=== PATIENT | male | born 1950 | race Caucasian/White ===

== ENCOUNTER 2020-11-15 15:22 | Outpatient (RCR) | payer BC, SELFPAY ==
[2020-11-15] MEDS: COVID-19 VACC, MRNA(PFIZER)/PF 30 MCG/0.3 ML SYRINGE IM (13:55)
[2020-12-06] MEDS: COVID-19 VACC, MRNA(PFIZER)/PF 30 MCG/0.3 ML SYRINGE IM (14:53)
== END 2021-02-14 23:59 ==
LOC: IMMUN 15:22
PROVIDERS: PCP Family Medicine; Visit Provider Family Medicine
DX: Z23 Encounter for immunization (principal)
CPT/HCPCS: 0001A; 0002A; 91300

== ENCOUNTER 2023-08-16 15:00 | Emergency (ER) | payer BC, SELFPAY ==
[2023-08-16 15:04] VITALS: BP 149/76; PULSE 72; RESP 16; TEMP 36.4; O2SAT 99; BMI 20.1
--- NOTE | 2023-08-16 15:20 | RAD_ITS ---
STUDY: X-RAY - LEFT RADIUS AND ULNA REASON FOR EXAM: Male, 73 years old. FALL, PAIN TECHNIQUE: 2 view(s) of the forearm. COMPARISON: None. FINDINGS: There is no demonstrated soft tissue swelling. The patient is status post open reduction and internal fixation of the distal radius. No acute abnormality is seen. Normal visualized ulna. RAD/Forearm 2 Views IMPRESSION: No acute abnormality is seen. Electronically Signed: Ravi Walter MD at 15:34 EST ,
--- NOTE | 2023-08-16 16:07 | ED.VIS.FALL ---
HPI HPI - Fall History of Present Illness Chief Complaint: Fall Detail of Chief Complaint: Fall Informant: patient Narrative Narrative: Patient presents to the emergency department after sustaining a fall while going up the steps while holding a vacuum. Patient states he lost his footing and fell forward up the steps and he bumped his head and right side of the face and ear against the wall. No loss of consciousness. He did not fall down the steps. He is not anticoagulated. He did injure his left forearm. He denies neck pain or chest pain or abdominal pain. He has been ambulatory. He is unsure of his last tetanus shot. PFSH PFS Allergy/AdvReac Type Severity Reaction Status Date / Time No Known Allergies Allergy Verified 08/16/23 15:04 Social History Smoking Status: Unknown if ever smoked ROS ROS ED Review of Systems ROS Unobtainable: other Constitutional Constitutional ED: Reports lethargy; Denies chills, fever(s), sweats or weight loss Eyes Eyes: Denies blurry vision, change in vision or diplopia ENT ENT ED: Reports other Details: Right forehead laceration, bruising to right ear ; Denies rhinorrhea or sore throat Cardiovascular Cardiovascular: Reports chest pain and racing heartbeat; Denies orthopnea Respiratory/Chest Respiratory/Chest: Reports dyspnea and dyspnea on exertion; Denies cough, orthopnea or sputum Gastrointestinal Gastrointestinal: Denies abdominal pain, diarrhea, nausea or vomiting Genitourinary Genitourinary ED: Denies dysuria, hematuria or urinary frequency Musculoskeletal Musculoskeletal: Reports other Details: Forearm pain ; Denies arthralgias, back pain, myalgias or neck pain Integumentary Reports other Details: Abrasion left forearm ; Denies abscess, Abrasions or rash Neurologic Neurologic: Denies headache(s) or weakness Psychiatric Psychiatric: Denies anxiety, depression or suicidal thoughts Endocrine Endocrinology: Denies polydipsia, polyphagia or polyuria Hematologic/Lymphatic Hematologic/Lymphatic: Denies easy bleeding, easy bruising or lymphadenopathy Allergic/Immunologic Allergic/Immunologic ED: Denies mouth swelling, tongue swelling or urticaria EXAM Physical Exam Const Vital Signs: 08/16/23 15:04 08/16/23 16:07 Temperature 97.5 F L Temperature Source Temporal Pulse Rate 72 Respiratory Rate 16 Respiratory Effort Normal Non-Labored Blood Pressure 149/76 H Blood Pressure Mean 100 Pulse Ox 99 Oxygen Delivery Method Room Air Positive well nourished and well developed General Appearance ED: well developed and NAD HEENT Reports TM's clear and moist mucous membranes HEENT Narrative: Patient has 1 cm laceration above the right eyebrow that is well-approximated with no significant bleeding. Patient also has a contusion to the right ear with small mount of bruising noted and superficial skin avulsion to the inner aspect of the ear. No lacerations noted. normocephalic; Negative for trauma or tenderness Tympanic Membrane ED: Yes TM's clear Eyes PERRL and EOMs intact bilaterally General Eye ED: Negative for pale conjunctiva or scleral icterus Neck no lymphadenopathy, supple and no JVD General: Negative for tenderness Chest Wall inspection of chest normal and palpation of chest normal Chest: Negative for tenderness Resp normal respiratory effort and clear to auscultation bilaterally Effort and Inspection: Negative for respiratory distress or pain with movement Auscultation: Negative for rhonchi, wheezes or diminished lung sounds Cardio regular rate, regular rhythm, S1 normal heart sound, S2 normal heart sound and no murmurs Peripheral Pulses: pulses 2+ throughout GI normal to inspection, nondistended, normoactive bowel sounds, soft to palpation, non-tender, non-distended and no masses Back/Spine no CVA tenderness and no thoracic nor lumbar tenderness Extremity Extremity Narrative: Left forearm-patient has a superficial skin avulsion over the volar proximal forearm measuring approximately 2.5 cm in diameter. Patient has a mild diffuse bony tenderness over the proximal humerus and radius. No obvious deformity. He is neurovascular intact distally. General Extremety ED: Negative for edema General Extremity: Negative for edema Neuro oriented x3, CN's II-XII intact bilaterally, no sensory deficits noted and gait normal Sensorium / Orientation: awake, alert, oriented to person, oriented to place and oriented to time Motor Exam: strength 5/5 throughout and strength abnormal Psych mental status grossly normal Skin no rashes or lesions noted and no wounds MDM MDM MDM Narrative Medical decision making narrative: Give protocol patient had x-rays of the left forearm ordered prior to my evaluating the patient and these were negative for fractures. The laceration of the forehead is easily amenable to Dermabond and he agreed to this. I cleansed the wound with saline. Wound was dried. I was able to easily approximate the wound edges with Dermabond and he tolerated this well. I do not feel any other imaging is indicated. Patient will receive a tetanus booster. Advised to follow-up with primary care physician in 3 to 5 days for wound check. Vies return if increasing pain, redness, swelling, purulent drainage, or condition worsening weight. Radiography Diagnostic Testing: Clinical Impression(s) from Imaging Studies Forearm X-Ray 08/16/23 15:20 IMPRESSION: No acute abnormality is seen. Electronically Signed: Ravi Walter MD at 15:34 EST , Discharge Plan Triage Chief Complaint: Fall ED Provider: Rosa Gongora Dx/Rx/DC Orders Clinical Impression: Skin tear, Forehead laceration, Fall, Contusion of forearm, left Instructions: ED Soft Tissue Contusion, ED Mechanical Fall, ED Laceration, Face: Skin Glue, ED Skin Tear (Skin Avulsion) Primary Care Provider: Eliceo Chamberlain Referrals: Eliceo Chamberlain MD [Primary Care Provider] - 3-5 Days Disposition Disposition: Home, Self Care Discharge Date/Time: 08/16/23 16:34
[2023-08-16] MEDS: Diphth,Pertuss(Acell),Tet Vac 0.5 ML Vial IM (16:26)
== END 2023-08-16 16:34 | disposition home or self-care (01) ==
PROVIDERS: Emergency Provider Emergency Medicine; PCP Family Medicine; Visit Provider Emergency Medicine
DX: S01.81XA Laceration without foreign body of other part of head, initial encounter (principal); W10.9XXA Fall (on) (from) unspecified stairs and steps, initial encounter; S50.12XA Contusion of left forearm, initial encounter; Y93.89 Activity, other specified; Z23 Encounter for immunization
CPT/HCPCS: 12011; 73090; 90471; 90715; 99283

== ENCOUNTER 2024-10-01 10:14 | Inpatient (IN) | payer OTHER, SELFPAY ==
[2024-10-01] VITALS (15 sets, daily range): BP systolic 119–150; BP diastolic 57–78; PULSE 68–109; RESP 16–30; TEMP 36.6–37.7; O2SAT 91–100; BMI 20.7; BMI 19.5
--- NOTE | 2024-10-01 10:48 | EX.ED.DYSGE1 ---
HPI History of Present Illness Chief Complaint: General Illness Informant: patient Narrative Narrative: 5-day history of productive cough. Fever 3 to 4 days ago. Last couple days nausea with dry heaves. Unable keep things down. No diarrhea. Reports myalgias. History of hypertension, hyperlipidemia, gout. Denies any chest or abdominal pain. [facility] Medical History (Updated 10/01/24 @ 16:18 by Kimberlee Leo) Hypertension Home Medications ?Medication ?Instructions ?Recorded ?Last Taken ?Type allopurinol 100 mg tablet 200 mg PO DAILY gout pain 10/01/24 09/30/24 History atorvastatin 20 mg tablet 20 mg PO QHS cholesterol 10/01/24 09/30/24 History lisinopril 5 mg tablet 5 mg PO DAILY 10/01/24 09/30/24 History Allergy/AdvReac Type Severity Reaction Status Date / Time No Known Allergies Allergy Verified 10/01/24 10:18 Social History Smoking Status: Unknown if ever smoked ROS ROS ED Constitutional Constitutional ED: Reports fever(s); Denies chills or sweats ENT ENT ED: Denies sore throat Cardiovascular Cardiovascular: Denies chest pain, leg edema, palpitations or racing heartbeat Respiratory/Chest Respiratory/Chest: Reports cough; Denies dyspnea or dyspnea on exertion Gastrointestinal Gastrointestinal: Reports nausea and vomiting; Denies abdominal pain or diarrhea Genitourinary Genitourinary ED: Denies dysuria, hematuria or urinary frequency Musculoskeletal Musculoskeletal: Reports myalgias; Denies back pain, extremity pain or neck pain Integumentary Denies rash or wounds Neurologic Neurologic: Denies headache(s), paresthesias or weakness EXAM Physical Exam Const Vital Signs: 10/01/24 10:16 10/01/24 10:18 10/01/24 10:18 Temperature 98.1 F 98.1 F 98.1 F Temperature Source Temporal Temporal Temporal Pulse Rate 109 H 104 H 109 H Respiratory Rate 16 16 16 Respiratory Pattern Blood Pressure 146/68 H 146/68 H 146/68 H Blood Pressure Mean 94 94 94 Pulse Ox 98 100 100 Oxygen Delivery Method Room Air Room Air Room Air 10/01/24 11:18 10/01/24 12:00 10/01/24 12:15 Temperature 98 F 98 F Temperature Source Oral Oral Pulse Rate 88 87 96 Respiratory Rate 18 16 21 H Respiratory Pattern Blood Pressure 140/68 H 146/64 H 150/68 H Blood Pressure Mean 92 91 95 Pulse Ox 97 98 97 Oxygen Delivery Method Room Air Room Air 10/01/24 12:15 10/01/24 12:17 Temperature Temperature Source Pulse Rate Respiratory Rate Respiratory Pattern Normal Blood Pressure Blood Pressure Mean Pulse Ox 96 Oxygen Delivery Method Room Air Positive well nourished and well developed General Appearance ED: well developed and NAD HEENT Reports dry mucous membranes normocephalic and atraumatic Mouth ED: Yes dry mucous membranes Mouth: dry mucous membranes Eyes General Eye ED: Yes normal appearance of both eyes Neck full ROM Chest Wall Chest: Negative for tenderness Resp normal respiratory effort and normal air movement Effort and Inspection: symmetric chest movement; Negative for respiratory distress Cardio regular rhythm and no murmurs Rate: tachycardic Peripheral Pulses: pulses 2+ throughout GI normal to inspection, nondistended, normoactive bowel sounds and non-tender Palpation: Negative for guarding or rebound tenderness present Extremity normal to inspection General Extremety ED: Negative for edema or tenderness General Extremity: Negative for edema Neuro oriented x3 and no sensory deficits noted Sensorium / Orientation: awake and alert Skin no rashes or lesions noted and no wounds MDM MDM MDM Narrative Medical decision making narrative: the right side with interventions / MDM: Differential diagnosis: Pneumonia, influenza, hypoxia, dehydration, nausea and vomiting Diagnosis considered but do not suspect: ninfa, labs stable My EKG interpretation: N/A Imaging independently reviewed and interpreted by myself: 2 view chest x-ray: Right upper lobe infiltrate also read by radiology. External documents reviewed: N/A Test considered but not ordered:N/A ED course: Afebrile slight tachycardia with dry mucosal membranes. Cough for 5 days nausea mom last 2 days. IV established for fluids will check labs, Zofran for nausea. Two-view chest x-ray, viral swab sent. 1220: Labs stable. Two-view chest x-ray right upper lobe infiltrate. Nasal swab positive for influenza. Tolerating oral fluids and reevaluation. Discussed coverage for secondary infection with the right upper lobe infiltrate with his flu symptoms. Started on doxycycline. I ambulated the patient, he dropped to 86% on room air with worsening dyspnea. This improves with rest. With hypoxia, will discuss with hospitalist service for admission. 1228: I spoke with hospitalist Dr. Nguyen for admission. Re-evaluation: stable Disposition discussed with patient/family/significant other: Patient and daughter Case discussed with consulting clinician: Hospitalist This note was generated with SeeWhy dictation software. It may contain incorrect words, spelling, and punctuation that were not noted in checking the note before signing. Lab Data Attestation: I reviewed the patient's lab results. Labs: Laboratory Results - last 24 hr 10/01/24 10:40 WBC 5.4 RBC 4.38 L Hgb 14.5 Hct 42.2 MCV 96.3 H MCH 33.1 H MCHC 34.4 RDW Std Deviation 44.3 H RDW Coeff of Hyun 12.4 Plt Count 130 L MPV 12.0 Immature Gran % (Auto) 0.200 Neut % (Auto) 86.3 H Lymph % (Auto) 6.1 L Brule % (Auto) 7.0 Eos % (Auto) 0.0 Baso % (Auto) 0.4 Absolute Neuts (auto) 4.7 Absolute Lymphs (auto) 0.33 L Nucleated RBC % 0 Sodium 137 Potassium 3.9 Chloride 103 Carbon Dioxide 28.0 Anion Gap 6 BUN 16 Creatinine 1.26 Estim Creat Clear Calc 44.96 Est GFR (MDRD) Af Amer 72 Est GFR (MDRD) Non-Af 59 L BUN/Creatinine Ratio 12.7 Glucose 128 H Calcium 9.2 Radiography Diagnostic Testing: Clinical Impression(s) from Imaging Studies Chest X-Ray 10/01/24 11:10 IMPRESSION: Right upper lobe infiltrate. Hyperinflation. Electronically Signed: Ravi Walter MD at 11:55 EST , Discharge Plan Dx/Rx/DC Orders Clinical Impression: Pneumonia, Influenza A, Hypoxia, Dehydration, Nausea & vomiting Disposition Disposition: Acute Care Hospital [facility] Discharge Date/Time: 10/01/24 16:07
[2024-10-01 11:03] LABS: Absolute Lymphocyte Count 0.33 X10^3/uL (0.83-4.51); Absolute Neutrophil Count 4.7 X10^3/uL (2.0-7.7); Basophil# 0.02 X10^3/uL; Basophil% 0.4 % (0-1); Hematocrit 42.2 % (40-54); Hemoglobin 14.5 g/dL (13.0-16.5); Lymphocyte # 0.33 X10^3/ul (0.83-4.51); Lymphocyte % 6.1 % (19-41); Mean Corp Hgb Conc 34.4 g/dL (32-36); Mean Corpuscular Hgb 33.1 pg (27.0-32.0); Mean Corpuscular Volume 96.3 fL (80-94); Monocyte# 0.38 X10^3/uL; NRBC Flagged by Analyzer 0 % (0-5); Neutrophil % 86.3 % (47-70); Platelet Count 130 K/mm3 (150-450); RBC Distribution Width CV 12.4 % (11.6-14.6); RBC Distribution Width SD 44.3 fl (35.1-43.9); Red Blood Count 4.38 M/mm3 (4.6-6.2); White Blood Count 5.4 K/mm3 (4.4-11.0)
[2024-10-01] MEDS: 0.9% Normal Saline (1000mL) 1,000 ML 1000 ML IV (11:09)
[2024-10-01] MEDS: Ondansetron 4 MG/2 ML Vial IV ×2 (11:09→15:27)
--- NOTE | 2024-10-01 11:10 | RAD_ITS ---
STUDY: X-RAY CHEST REASON FOR EXAM: Male, 74 years old. Cough TECHNIQUE: PA and lateral views of the chest. COMPARISON: None. FINDINGS: Right upper lobe infiltrate. Hyperinflation. There is no demonstrated pleural abnormality. Normal size heart. Normal mediastinum and venkata. Normal visualized pulmonary arteries. Normal visualized aortic arch and descending thoracic aorta. There are diffuse degenerative changes of the visualized thoracic spine. Normal visualized ribs, clavicles, and shoulders. There is no demonstrated abnormality of the visualized soft tissue structures of the upper abdomen. RAD/Chest PA and Lateral IMPRESSION: Right upper lobe infiltrate. Hyperinflation. Electronically Signed: Ravi Walter MD at 11:55 [facility] ,
[2024-10-01 11:16] LABS: Anion Gap 6 (5-15); BUN 16 mg/dL (7-18); BUN/Creat Ratio 12.7 RATIO (10-20); Calcium,Total 9.2 mg/dL (8.5-10.1); Chloride 103 mmol/L (98-107); Creatinine, Serum 1.26 mg/dL (0.70-1.30); EST Glomerular Filtration Rate 59 mL/min (>60); Est Glom Filt Rate - Afr Amer 72 mL/min (>60); Estimated Creatinine Clearance 44.96 ml/min; Glucose 128 mg/dL (74-106); Potassium 3.9 mmol/L (3.5-5.1); Sodium Level 137 mmol/L (136-145)
--- NOTE | 2024-10-01 12:53 | PCM.HP.STD ---
HPI - General General Date of Admission: 10/01/24 Date of Service: 10/01/24 Chief Complaint: Fever and chills HPI Narrative FABIANO FERREIRA, is a 74 M with past medical history significant for dyslipidemia gout hypertension who presented with fever chills and generalized weakness. Per patient symptoms have been ongoing for the past couple of days. Elected to present to the emergency department due to worsening symptoms. In the ED patient tested positive for influenza A. Chest x-ray obtained did show right upper lobe infiltrate consistent with pneumonia. Antibiotics initiated per protocol admitted to regular nursing floor for further management PFSH Home Medications ?Medication ?Instructions ?Recorded ?Last Taken ?Type allopurinol 100 mg tablet 200 mg PO DAILY gout pain 10/01/24 09/30/24 History atorvastatin 20 mg tablet 20 mg PO QHS cholesterol 10/01/24 09/30/24 History lisinopril 5 mg tablet 5 mg PO DAILY 10/01/24 09/30/24 History Allergy/AdvReac Type Severity Reaction Status Date / Time No Known Allergies Allergy Verified 10/01/24 10:18 Social History Smoking Status: Unknown if ever smoked ROS ROS Narrative GENERAL: ever, chills, night sweats HEENT: denies headache, sinus congestion, or drainage, dysphagia RESPIRATORY: cough, CARDIAC: denies chest pain, palpitations, orthopnea, PND GASTROINTESTINAL: denies abdominal pain, nausea, vomiting, melena, GENITOURINARY: denies dysuria, urgency, frequency, heamaturia EXTREMITY: denies swelling MUSCULOSKELETAL: denies current joint pain or tenderness NEUROLOGIC: denies focal numbness, weakness, tingling HEMATOLOGIC: denies easy bruising and/or hemorrhage INTEGUMENT: denies rashes PSYCHIATRIC: denies suicidal or homicidal ideation Vital Signs Vital Signs Vital Signs: 10/01/24 10:16 10/01/24 10:18 10/01/24 10:18 Temperature 98.1 F 98.1 F 98.1 F Temperature Source Temporal Temporal Temporal Pulse Rate 109 H 104 H 109 H Respiratory Rate 16 16 16 Respiratory Pattern Blood Pressure 146/68 H 146/68 H 146/68 H Blood Pressure Mean 94 94 94 Pulse Ox 98 100 100 Oxygen Delivery Method Room Air Room Air Room Air 10/01/24 11:18 10/01/24 12:00 10/01/24 12:15 Temperature 98 F 98 F Temperature Source Oral Oral Pulse Rate 88 87 96 Respiratory Rate 18 16 21 H Respiratory Pattern Blood Pressure 140/68 H 146/64 H 150/68 H Blood Pressure Mean 92 91 95 Pulse Ox 97 98 97 Oxygen Delivery Method Room Air Room Air 10/01/24 12:15 10/01/24 12:17 Temperature Temperature Source Pulse Rate Respiratory Rate Respiratory Pattern Normal Blood Pressure Blood Pressure Mean Pulse Ox 96 Oxygen Delivery Method Room Air Weight Weight: 61.8 kg Body Mass Index (BMI) 20.7 Physical Exam Narrative GENERAL: cooperative HEENT: Atraumatic; normocephalic EYES; Anicteric, Normal Conjunctiva NECK; supple, normal thyroid, RESPIRATORY: Diminished to auscultation CARDIOVASCULAR: Regular S1 S2, GI: soft, normoactive bowel sounds, : No Renal angle tenderness; EXTREMITIES: No edema, no clubbing, MUSCULOSKELETAL: no muscle wasting NEURO: Awake; no lateralizing signs. SKIN: No Rash PSYCH; Flat affect Results Lab / Micro Data 10/01/24 10:40 10/01/24 10:40 Labs: Laboratory Results - last 24 hr 10/01/24 10:40: WBC 5.4, RBC 4.38 L, Hgb 14.5, Hct 42.2, MCV 96.3 H, MCH 33.1 H, MCHC 34.4, RDW Std Deviation 44.3 H, RDW Coeff of Hyun 12.4, Plt Count 130 L, MPV 12.0, Immature Gran % (Auto) 0.200, Neut % (Auto) 86.3 H, Lymph % (Auto) 6.1 L, Stewart % (Auto) 7.0, Eos % (Auto) 0.0, Baso % (Auto) 0.4, Absolute Neuts (auto) 4.7, Absolute Lymphs (auto) 0.33 L, Nucleated RBC % 0, Sodium 137, Potassium 3.9, Chloride 103, Carbon Dioxide 28.0, Anion Gap 6, BUN 16, Creatinine 1.26, Estim Creat Clear Calc 44.96, Est GFR (MDRD) Af Amer 72, Est GFR (MDRD) Non-Af 59 L, BUN/Creatinine Ratio 12.7, Glucose 128 H, Calcium 9.2 Micro: Microbiology 10/01/24 10:55 Mucosa - Nose SARS-CoV-2, Influenza & RSV (PCR) - Final Influenzae A Imaging Radiology Impression Chest X-Ray 10/01/24 11:10 IMPRESSION: Right upper lobe infiltrate. Hyperinflation. Electronically Signed: Ravi Walter MD at 11:55 EST , Assessment & Plan Assessment/Plan (1) Influenza A: (2) Pneumonia: PLAN: Plan Patient is a 74-year-old gentleman presenting with progressive generalized weakness with fever and chills tested positive for influenza A checks x-ray demonstrated right upper lobe infiltrate 1. Acute influenza A infection ? Patient is outside the window for Tamiflu admitted to regular nursing floor for symptom management 2. Pneumonia - Suspected to be secondary to streptococcal pneumonia, Blood and sputum cultures sent. Patient placed on Levaquin and placed on oxygen titrated to keep Pulse Ox greater than 90 3. Dyslipidemia ?Patient is on statin therapy, continued at home dose 4. Hypertension ? Blood pressure controlled, home medications continued with dose adjustment as needed 5. Gout ? Patient's allopurinol did continue 6. DVT prophylaxis ? SC Lovenox Time spent in the patient's overall evaluation,decision-making process, review of diagnostic data, adjustment of management, discussion with other providers, nursing nursing and ancillary staff involved in patient's care documentation, 55 Minutes Advance planning; did discuss with the patient and family regarding advanced directives as well as CODE STATUS. Did explain the various scenarios involved ( FULL CODE, DNR CCA, DNR CCA with no intubation, and DNR CC and what each meant) patient elected to be full code with CPR and intubation if needed. Order was placed. Time spent on discussion 16 minutes. Charges/Coding Multi Select Codes Visit Charges Visit Charges: 12182 Init Hosp L2 Hospitalists' Procedures Procedures: 16823 Advncd Care Plan 30 Min
--- NOTE | 2024-10-01 13:27 | CASEMGMT ---
Care Management Face to Face with patient for initial transition planning/care coordination assessment in the ED. This underwriter solicitation director introduced self and role at [facility]. Patient alert and oriented. Patient willing to participate in assessment and is able to answer all questions for patient appropriately. Care providers, pharmacy, and demographics verified. Admitting Diagnosis: Pneumonia, Influenza A, Hypoxia, Dehydration Other diagnosis history: hypertension, hyperlipidemia, gout PCP: Eliceo Cahmberlain Specialists: Dr. Terry, urologist at . Dr. Gregory, server security administrator. Preferred Pharmacy: [facility] Insurance: [place] (primary[place] (secondary). Patient reports just signing up for VA benefits last year and never needing to use them yet. Prescription Benefit: yes Living Will/HPOA: does not have documents and denies needing information at this time LNOK: daughters Racquel and Ekta. Sons Eleazar (Bebo) and Sridhar. Sridhar is reportedly mentally handicapped and living in a detention in [place]. Living Arrangements: lives alone and is independent with all ADLs. 2 story home with 2 steps to enter. Bedroom and 1/2 bath upstairs (full flight of stairs to get to that level). Full bath on main level. Transportation: patient drives. DME: none HHC: none SNF/Rehab: none Community Resources: none Patient goals: Patient wishes to discharge home, denies need for home health care at this time. Patient states he has no further needs or concerns at this time. Disposition Plan: admission to acute; RN CM/SW to follow for discharge planning needs that may arise. Laure Guzman, ORIENTOR, RAILROAD OPERATING ENGINEER
[2024-10-01] MEDS: Doxycycline 100 MG in 0.9% Normal Saline (250mL Bag) 250 ML 250 MG IV (13:30)
[2024-10-01] MEDS: Acetaminophen 500 MG Tablet 1000 MG PO (13:42)
[2024-10-01] MEDS: guaiFENesin 1,200 MG Tablet 1200 MG PO ×2 (17:10→21:25)
[2024-10-01] MEDS: levoFLOXacin IV 750 MG/150 ML BAG 100 MG IV (17:10)
[2024-10-01] MEDS: predniSONE 20 MG Tablet 40 MG PO (17:10)
[2024-10-01] MEDS: 0.9% Normal Saline (100mL Bag) 100 ML IV (17:10)
[2024-10-01] MEDS: 0.9% Saline Lock 10 ML Syringe IV (17:10)
[2024-10-01] MEDS: Atorvastatin Calcium 20 MG Tablet PO (21:25)
[2024-10-02 05:39] VITALS: BP 147/71; PULSE 71; RESP 16; TEMP 36.7; O2SAT 96
[2024-10-02 05:40] VITALS: O2SAT 96
[2024-10-02 06:27] LABS: Absolute Lymphocyte Count 0.48 X10^3/uL (0.83-4.51); Absolute Neutrophil Count 5.3 X10^3/uL (2.0-7.7); Basophil# 0.01 X10^3/uL; Basophil% 0.2 % (0-1); Hematocrit 38.8 % (40-54); Hemoglobin 13.4 g/dL (13.0-16.5); Lymphocyte # 0.48 X10^3/ul (0.83-4.51); Lymphocyte % 7.8 % (19-41); Mean Corp Hgb Conc 34.5 g/dL (32-36); Mean Corpuscular Volume 95.6 fL (80-94); Mean Platelet Vol. 12.2 fl (6.2-12.0); Monocyte# 0.34 X10^3/uL; Monocyte% 5.5 % (0-10); NRBC Flagged by Analyzer 0 % (0-5); Neutrophil # 5.29 X10^3/uL (2.7-7.7); Neutrophil % 86.2 % (47-70); POSITIVE DIFFERENTIAL YES; Platelet Count 117 K/mm3 (150-450); RBC Distribution Width CV 12.5 % (11.6-14.6); RBC Distribution Width SD 43.9 fl (35.1-43.9); Red Blood Count 4.06 M/mm3 (4.6-6.2); White Blood Count 6.1 K/mm3 (4.4-11.0)
[2024-10-02 07:04] VITALS: O2SAT 96
--- NOTE | 2024-10-02 07:24 | PN.HOSP_ITS ---
Reason for Visit Reason for Visit: Diagnoses Influenza due to other identified influenza virus with other respiratory manifestations (10/01/24) Pneumonia, unspecified organism (10/01/24) Subjective Subjective Patient is a 74-year-old gentleman admitted with acute influenza A infection with superimposed bacterial pneumonia admitted to regular nursing floor where patient is currently being managed. Patient still has a persistent cough. However remains off supplemental oxygen Objective Data Objective Data Vital Signs: Vital Signs Temp Pulse Resp BP Pulse Ox O2 Del Method 98.1 F 71 16 147/71 H 96 Room Air 10/02/24 05:39 10/02/24 05:39 10/02/24 05:39 10/02/24 05:39 10/02/24 07:04 10/02/24 07:04 Oxygen Delivery Method Room Air Weight: 58.4 kg Body Mass Index (BMI) 19.5 Intake & Output: Intake and Output for Last 24 Hours 09/30/24 10/01/24 10/02/24 23:59 23:59 23:59 Intake Total 1610.15 / 1610.15 400 / 400 Balance 1610.15 / 1610.15 400 / 400 Lab / Micro Data 10/02/24 05:39 10/02/24 05:39 Labs: Laboratory Results - last 24 hr 10/01/24 10:40: WBC 5.4, RBC 4.38 L, Hgb 14.5, Hct 42.2, MCV 96.3 H, MCH 33.1 H, MCHC 34.4, RDW Std Deviation 44.3 H, RDW Coeff of Hyun 12.4, Plt Count 130 L, MPV 12.0, Immature Gran % (Auto) 0.200, Neut % (Auto) 86.3 H, Lymph % (Auto) 6.1 L, [place] % (Auto) 7.0, Eos % (Auto) 0.0, Baso % (Auto) 0.4, Absolute Neuts (auto) 4.7, Absolute Lymphs (auto) 0.33 L, Nucleated RBC % 0, Sodium 137, Potassium 3.9, Chloride 103, Carbon Dioxide 28.0, Anion Gap 6, BUN 16, Creatinine 1.26, Estim Creat Clear Calc 44.96, Est GFR (MDRD) Af Amer 72, Est GFR (MDRD) Non-Af 59 L, BUN/Creatinine Ratio 12.7, Glucose 128 H, Calcium 9.2 10/02/24 05:39: WBC 6.1, RBC 4.06 L, Hgb 13.4, Hct 38.8 L, MCV 95.6 H, MCH 33.0 H, MCHC 34.5, RDW Std Deviation 43.9, RDW Coeff of Hyun 12.5, Plt Count 117 L, M PV 12.2 H, Immature Gran % (Auto) 0.300, Neut % (Auto) 86.2 H, Lymph % (Auto) 7.8 L, [place] % (Auto) 5.5, Eos % (Auto) 0.0, Baso % (Auto) 0.2, Absolute Neuts (auto) 5.3, Absolute Lymphs (auto) 0.48 L, Nucleated RBC % 0 Micro: Microbiology 10/01/24 22:10 Urine, Random Legionella Antigen - Final 10/01/24 10:55 Mucosa - Nose SARS-CoV-2, Influenza & RSV (PCR) - Final Influenzae A Radiography Diagnostic Testing: Radiology Impression Chest X-Ray 10/01/24 11:10 IMPRESSION: Right upper lobe infiltrate. Hyperinflation. Electronically Signed: Ravi Walter MD at 11:55 EST , Physical Exam Narrative GENERAL: cooperative HEENT: Atraumatic; normocephalic EYES; Anicteric, Normal Conjunctiva NECK; supple, normal thyroid, RESPIRATORY: Diminished to auscultation CARDIOVASCULAR: Regular S1 S2, GI: soft, normoactive bowel sounds, : No Renal angle tenderness; EXTREMITIES: No edema, no clubbing, MUSCULOSKELETAL: no muscle wasting NEURO: Awake; no lateralizing signs. SKIN: No Rash PSYCH; Flat affect Assessment & Plan Assessment/Plan (1) Influenza A: (2) Pneumonia: PLAN: Plan Patient is a 74-year-old gentleman presenting with progressive generalized weakness with fever and chills tested positive for influenza A checks x-ray demonstrated right upper lobe infiltrate 1. Acute influenza A infection ? Patient is outside the window for Tamiflu admitted to regular nursing floor for symptom management ? 10/02/2024; patient still has persistent cough 2. Pneumonia - Suspected to be secondary to streptococcal pneumonia, Blood and sputum cultures sent. Patient placed on Levaquin and placed on oxygen titrated to keep Pulse Ox greater than 90 ? 09/28/2024; remains on supplemental oxygen 3. Dyslipidemia ?Patient is on statin therapy, continued at home dose 4. Hypertension ? Blood pressure controlled, home medications continued with dose adjustment as needed 5. Gout ? Patient's allopurinol did continue 6. DVT prophylaxis ? SC Lovenox Time spent in the patient's overall evaluation,decision-making process, review of diagnostic data, adjustment of management, discussion with other providers, nursing nursing and ancillary staff involved in patient's care documentation, 38 minutes Charges/Coding Visit Charges Inpatient E&M: 40529 Subs Hosp L2
[2024-10-02 07:47] LABS: Anion Gap 6 (5-15); BUN 18 mg/dL (7-18); BUN/Creat Ratio 19.5 RATIO (10-20); Calcium,Total 8.9 mg/dL (8.5-10.1); Chloride 111 mmol/L (98-107); Creatinine, Serum 0.92 mg/dL (0.70-1.30); EST Glomerular Filtration Rate 85 mL/min (>60); Est Glom Filt Rate - Afr Amer 103 mL/min (>60); Estimated Creatinine Clearance 58.19 ml/min; Glucose 139 mg/dL (74-106); Magnesium 2.3 mg/dL (1.6-2.6); Phosphorus 3.1 mg/dL (2.5-4.9); Potassium 4.1 mmol/L (3.5-5.1); Sodium Level 141 mmol/L (136-145)
[2024-10-02 08:06] VITALS: BP 133/69; PULSE 79; RESP 18; TEMP 36.6; O2SAT 99
[2024-10-02] MEDS: predniSONE 20 MG Tablet 40 MG PO (08:21)
[2024-10-02] MEDS: Allopurinol 100 MG Tablet 200 MG PO (11:21)
[2024-10-02] MEDS: guaiFENesin 1,200 MG Tablet 1200 MG PO ×2 (11:21→21:54)
[2024-10-02] MEDS: Lisinopril 5 MG Tablet PO (11:21)
[2024-10-02] MEDS: Enoxaparin 40 MG/0.4 ML Syringe SC (11:27)
[2024-10-02 13:31] VITALS: BP 122/64; PULSE 88; RESP 18; TEMP 36.6; O2SAT 97
--- NOTE | 2024-10-02 16:16 | CASEMGMT ---
Social Work SW met with pt and educated pt to Advance Directives. Pt appreciate of information, but does not want to complete at this time. Pt given AD rack card and made aware that outpt appointment can be made with SW to complete AD. CHAD Mathis
[2024-10-02 21:51] VITALS: BP 148/70; PULSE 70; RESP 16; TEMP 36.6; O2SAT 98
[2024-10-02] MEDS: Atorvastatin Calcium 20 MG Tablet PO (21:54)
[2024-10-03 05:00] VITALS: BP 149/68; PULSE 64; RESP 20; TEMP 36.7; O2SAT 99
[2024-10-03 06:07] LABS: Absolute Lymphocyte Count 1.14 X10^3/uL (0.83-4.51); Absolute Neutrophil Count 4.1 X10^3/uL (2.0-7.7); Basophil# 0.01 X10^3/uL; Basophil% 0.2 % (0-1); Hematocrit 35.4 % (40-54); Hemoglobin 12.1 g/dL (13.0-16.5); Lymphocyte # 1.14 X10^3/ul (0.83-4.51); Lymphocyte % 19.4 % (19-41); Mean Corp Hgb Conc 34.2 g/dL (32-36); Mean Corpuscular Hgb 32.5 pg (27.0-32.0); Mean Corpuscular Volume 95.2 fL (80-94); Mean Platelet Vol. 11.4 fl (6.2-12.0); Monocyte# 0.57 X10^3/uL; Monocyte% 9.7 % (0-10); NRBC Flagged by Analyzer 0 % (0-5); Neutrophil # 4.14 X10^3/uL (2.7-7.7); Neutrophil % 70.2 % (47-70); Platelet Count 154 K/mm3 (150-450); RBC Distribution Width CV 12.5 % (11.6-14.6); RBC Distribution Width SD 43.7 fl (35.1-43.9); Red Blood Count 3.72 M/mm3 (4.6-6.2); White Blood Count 5.9 K/mm3 (4.4-11.0)
[2024-10-03 06:55] LABS: Anion Gap 9 (5-15); BUN 27 mg/dL (7-18); BUN/Creat Ratio 29.1 RATIO (10-20); Calcium,Total 8.7 mg/dL (8.5-10.1); Chloride 112 mmol/L (98-107); Creatinine, Serum 0.93 mg/dL (0.70-1.30); EST Glomerular Filtration Rate 85 mL/min (>60); Est Glom Filt Rate - Afr Amer 102 mL/min (>60); Estimated Creatinine Clearance 57.56 ml/min; Glucose 118 mg/dL (74-106); Potassium 3.8 mmol/L (3.5-5.1); Sodium Level 141 mmol/L (136-145)
--- NOTE | 2024-10-03 07:20 | PCM.DC.SUM ---
Providers Date of Admission: 10/01/24 Date of Discharge: 10/03/24 Primary Care Physician: Dr. Eliceo Chamberlain MD Reason For Visit: PNEUMONIA Diagnosis Discharge Diagnosis (1) Influenza A: Status: Acute Code(s): J10.1 - Influenza due to other identified influenza virus with other respiratory manifestations (2) Pneumonia: Status: Acute Code(s): J18.9 - Pneumonia, unspecified organism Plan Patient is a 74-year-old gentleman presenting with progressive generalized weakness with fever and chills tested positive for influenza A checks x-ray demonstrated right upper lobe infiltrate 1. Acute influenza A infection ? Patient is outside the window for Tamiflu admitted to regular nursing floor for symptom management ? 10/02/2024; patient still has persistent cough 2. Pneumonia - Suspected to be secondary to streptococcal pneumonia, Blood and sputum cultures sent. Patient placed on Levaquin and placed on oxygen titrated to keep Pulse Ox greater than 90 ? 09/28/2024; remains on supplemental oxygen 3. Dyslipidemia ?Patient is on statin therapy, continued at home dose 4. Hypertension ? Blood pressure controlled, home medications continued with dose adjustment as needed 5. Gout ? Patient's allopurinol did continue 6. DVT prophylaxis ? SC Lovenox Time spent in the patient's overall evaluation,decision-making process, review of diagnostic data, adjustment of management, discussion with other providers, nursing nursing and ancillary staff involved in patient's care documentation, 38 minutes Medications at Discharge Home Medications allopurinol 100 mg tablet 200 mg PO DAILY gout pain 10/01/24 atorvastatin 20 mg tablet 20 mg PO QHS cholesterol 10/01/24 lisinopril 5 mg tablet 5 mg PO DAILY 10/01/24 acetaminophen 325 mg tablet 650 mg (2 x 325 mg) PO Q6H PRN PRN Pain 1-10 Or Fever>100.7 #0 tabs 10/03/24 guaifenesin 1,200 mg tablet, extended release 12 hr (Mucus Relief ER) 1,200 mg PO BID #20 tabs 10/03/24 levofloxacin 750 mg tablet 750 mg PO DAILY #5 tabs 10/03/24 prednisone 20 mg tablet 40 mg (2 x 20 mg) PO DAILY@0800 #10 tabs 10/03/24 Physical Exam Narrative GENERAL: cooperative HEENT: Atraumatic; normocephalic EYES; Anicteric, Normal Conjunctiva NECK; supple, normal thyroid, RESPIRATORY: Diminished to auscultation CARDIOVASCULAR: Regular S1 S2, GI: soft, normoactive bowel sounds, : No Renal angle tenderness; EXTREMITIES: No edema, no clubbing, MUSCULOSKELETAL: no muscle wasting NEURO: Awake; no lateralizing signs. SKIN: No Rash PSYCH; Flat affect Weight / BMI Weight Weight: 58.4 kg Body Mass Index (BMI) 19.5 ABG / Lab / Microbiology Data 10/03/24 05:45 10/03/24 05:45 Laboratory: Laboratory Results - last 24 hr 10/02/24 05:39: Sodium 141, Potassium 4.1, Chloride 111 H, Carbon Dioxide 24.0, Anion Gap 6, BUN 18, Creatinine 0.92, Estim Creat Clear Calc 58.19, Est GFR (MDRD) Af Amer 103, Est GFR (MDRD) Non-Af 85, BUN/Creatinine Ratio 19.5, Glucose 139 H, Calcium 8.9, Phosphorus 3.1, Magnesium 2.3 10/03/24 05:45: WBC 5.9, RBC 3.72 L, Hgb 12.1 L, Hct 35.4 L, MCV 95.2 H, MCH 32.5 H, MCHC 34.2, RDW Std Deviation 43.7, RDW Coeff of Hyun 12.5, Plt Count 154, MPV 11.4, Immature Gran % (Auto) 0.500, Neut % (Auto) 70.2 H, Lymph % (Auto) 19.4, [place] % (Auto) 9.7, Eos % (Auto) 0.0, Baso % (Auto) 0.2, Absolute Neuts (auto) 4.1, Absolute Lymphs (auto) 1.14, Nucleated RBC % 0, Sodium 141, Potassium 3.8, Chloride 112 H, Carbon Dioxide 21.0, Anion Gap 9, BUN 27 H, Creatinine 0.93, Estim Creat Clear Calc 57.56, Est GFR (MDRD) Af Amer 102, Est GFR (MDRD) Non-Af 85, BUN/Creatinine Ratio 29.1 H, Glucose 118 H, Calcium 8.7 Microbiology: Microbiology 10/02/24 16:35 Urine, Clean Catch Streptococcus pneumoniae Antigen (M - Final 10/01/24 22:10 Urine, Random Legionella Antigen - Final 10/01/24 10:55 Mucosa - Nose SARS-CoV-2, Influenza & RSV (PCR) - Final Influenzae A D/C Instructions Discharge Diet: No restrictions Discharge Activity: Return to Normal Activity Call your doctor if you observe: Fever of 101 or Higher, Shortness of breath, Fainting spells and Chest pain DC O2, CPAP, BIPAP Needs Home O2 Discharge instructions: No DC home with Oxygen: No Meaningful Use Info Meaningful Use Meaningful Use Diagnoses (Choose all that apply): None applicable Ischemic Stroke Statin Dosing Therapy Reference: STATIN DOSE THERAPY REFERENCE: * Patients > 75 years receive moderate or high dose statin therapy. * Patients 75 years or YOUNGER should receive HIGH intensity statin dose unless contraindicated. You will be required to document reason for non-treatment if statin daily dose does not meet guidelines. HIGH DOSE STATIN THERAPY DAILY Atorvastatin > than or = to 40 mg Rosuvastatin > than or = to 20 mg Amlodipine + Atorvastatin > than or = to 2.5/40 mg Ezetimibe + Simvastatin 10/80 mg Simvastatin 80mg Discharge Plan Admission Admit Date/Time: 10/01/24 12:27 Attending Provider: Michael Nguyen Primary Care Provider: Eliceo Chamberlain Discharge Orders/Prescriptions Prescriptions: New acetaminophen 325 mg Tablet 650 mg PO Q6H PRN PRN (Reason: Pain 1-10 Or Fever>100.7) Qty: 0 0RF prednisone 20 mg Tablet 40 mg PO DAILY@0800 Qty: 10 0RF guaifenesin [Mucus Relief ER] 1,200 mg Tablet Extended Release 12hr 1,200 mg PO BID Qty: 20 0RF levofloxacin 750 mg tablet 750 mg PO DAILY Qty: 5 0RF Continued atorvastatin 20 mg tablet 20 mg PO QHS allopurinol 100 mg tablet 200 mg PO DAILY lisinopril 5 mg tablet 5 mg PO DAILY Referrals / Follow Up: Eliceo Chamberlain MD [Primary Care Provider] - Within 1 Week Disposition Disposition (needs filled in before D/C Order can be placed): Home, Self Care Charges/Coding Visit Charges Inpatient E&M: 55453 Disch Hosp >30min
[2024-10-03] MEDS: Lisinopril 5 MG Tablet PO (08:24)
[2024-10-03] MEDS: guaiFENesin 1,200 MG Tablet 1200 MG PO (08:24)
[2024-10-03] MEDS: predniSONE 20 MG Tablet 40 MG PO (08:24)
[2024-10-03] MEDS: Allopurinol 100 MG Tablet 200 MG PO (08:24)
[2024-10-03] MEDS: Enoxaparin 40 MG/0.4 ML Syringe SC (08:25)
[2024-10-03] MEDS: levoFLOXacin IV 750 MG/150 ML BAG 100 MG IV (09:16)
[2024-10-03 09:17] VITALS: BP 126/76; PULSE 80; RESP 18; TEMP 36.6; O2SAT 98
== END 2024-10-03 10:53 | disposition home or self-care (01) | DRG 195 ==
LOC: ED 13:27 → MS3 15:49
PROVIDERS: Admitting Provider Internal Medicine; Emergency Provider Emergency Medicine; PCP Family Medicine; Visit Provider Internal Medicine
DX: J10.00 Influenza due to other identified influenza virus with unspecified type of pneumonia (principal); E78.5 Hyperlipidemia, unspecified; I10 Essential (primary) hypertension; J15.4 Pneumonia due to other streptococci; M10.9 Gout, unspecified; R09.02 Hypoxemia; Z79.899 Other long term (current) drug therapy
CPT/HCPCS: 36415; 71046; 80048; 83735; 84100; 85025; 87040; 87070; 87205; 87449; 87631; 94668; 97802; 99284; A4216; J2405